=== PATIENT | female | born 1940 | race Caucasian/White ===

== ENCOUNTER 2018-08-02 09:12 | Emergency (ER) | payer OTHER ==
[~2018-08-02] VITALS: Ht 160 cm; Wt 74.1 kg
[~2018-08-02 09:12] MED LIST: AMLO5TAB7 HOMEMEDPO; CEFU500T50 HOMEMEDPO; FLUT1DIS3 HOMEINH; IPRA3AMP18 HOMEINH; LOSA50TA7 HOMEMEDPO; TIOT18CA HOMEINH
[2018-08-02] MEDS ORDERED: KETOROLAC 30 MG/1 ML ONE (12:21)
[2018-08-02] MEDS ORDERED: HYDROcodone/APAP 5/325 TABLET ONE (12:21)
[2018-08-02] MEDS ORDERED: HYDROcodone/APAP 5/325 TABLET PO ONE (12:30)
[2018-08-02] MEDS ORDERED: KETOROLAC 60 MG/2 ML IM ONE (12:30)
[2018-08-02 13:15] VITALS: BP 134/68
== END 2018-08-02 13:18 | disposition home or self-care (01) ==
LOC: ED 13:00
DX: M54.31 Sciatica, right side (principal); M25.551 Pain in right hip; J44.9 Chronic obstructive pulmonary disease, unspecified; Z90.710 Acquired absence of both cervix and uterus
CPT/HCPCS: 73502; 96372; 99283; J1885

== ENCOUNTER 2019-12-06 20:03 | Emergency (ER) | payer MEDICARE, OTHER ==
[~2019-12-06] VITALS: Ht 160 cm; Wt 77.2 kg
[~2019-12-06 20:03] MED LIST changes: +AMLO-150 HOMEMEDPO; -AMLO5TAB7 HOMEMEDPO; +LOSA50TA14 HOMEMEDPO; -LOSA50TA7 HOMEMEDPO
--- NOTE | 2019-12-06 20:40 | NUR ---
assessment made. chart up for MD to see. patient c/o right hand / fingers and right hip pain. right knee abrasions noted too s/p GLF. denies neck / back pain. denies loc. denies hitting. ambulatory
[2019-12-06] MEDS ORDERED: NEOSPORIN OINT. PKT 1 PACKET ONE (21:42)
[2019-12-06 22:41] VITALS: BP 120/75
== END 2019-12-06 22:55 | disposition home or self-care (01) ==
LOC: ED 20:48
DX: M19.041 Primary osteoarthritis, right hand (principal); M16.11 Unilateral primary osteoarthritis, right hip; S60.511A Abrasion of right hand, initial encounter; S70.211A Abrasion, right hip, initial encounter; G89.11 Acute pain due to trauma; J44.9 Chronic obstructive pulmonary disease, unspecified; I10 Essential (primary) hypertension; W01.0XXA Fall on same level from slipping, tripping and stumbling without subsequent striking against object, initial encounter; Y93.01 Activity, walking, marching and hiking; Y92.098 Other place in other non-institutional residence as the place of occurrence of the external cause; Y99.8 Other external cause status
CPT/HCPCS: 99284

== ENCOUNTER → 2020-04-21 | Outpatient (CLI) | payer MEDICARE | END | disposition home or self-care (01) | LOC: RAD 07:26 | PROVIDERS: ATTEND Pain Medicine Interventional Pain Medicine | DX: Z01.810 Encounter for preprocedural cardiovascular examination (principal); Z01.812 Encounter for preprocedural laboratory examination; G90.50 Complex regional pain syndrome I, unspecified; I70.0 Atherosclerosis of aorta; M47.814 Spondylosis without myelopathy or radiculopathy, thoracic region; I21.09 ST elevation (STEMI) myocardial infarction involving other coronary artery of anterior wall | CPT/HCPCS: 71046; 93005 ==

== ENCOUNTER 2021-02-28 23:27 | Inpatient (IN) | payer MEDICARE ==
[~2021-02-28] VITALS: Ht 160 cm; Wt 80.1 kg
[~2021-02-28 23:27] MED LIST changes: +ALEN70TA3 PO; +AMIO100T4 PO; +AMIO200T42 PO; +APIX5TAB PO; +ASPI81TA45 PO; +ATOR40TA78 PO; +BISA-49 PO; +DIGO125T85 PO; +FLUT1BLS3 INH; +LEVO50TA PO; +LOSA100T14 PO; +METO25TA35 PO; +TICA90TA PO
--- NOTE | 2021-03-01 00:30 | NUR ---
HAVEN PAN (BROTHER) [phone]
[2021-03-01] MEDS ORDERED: ALBUTEROL SULFATE 2.5 MG/3 ML NPPB ONE (01:00)
[2021-03-01 01:21] LABS: BASOPHILS % (AUTO) 1 % (0-1); EOSINOPHILS % (AUTO) 1 % (1-7); LYMPHOCYTES % (AUTO) 7 % (22-44); MEAN CORPUSCULAR HEMOGLOBIN 26.9 pg (27.0-34.8); MEAN PLATELET VOLUME 7.9 fL (7.4-10.4); MONOCYTES % (AUTO) 6 % (2-9); NEUTROPHILS % (AUTO) 85 % (42-75); PLATELET COUNT 395 x10^3/uL (130-400); RED BLOOD COUNT 4.08 x10^6/uL (3.82-5.3); RED CELL DISTRIBUTION WIDTH 18.5 % (9.6-15.2)
[2021-03-01 01:25] LABS: ALANINE AMINOTRANSFERASE 88 U/L (12-78); ALBUMIN 3.4 g/dL (3.4-5.0); ANION GAP 6 mmol/L (5-15); CALCIUM 8.4 mg/dL (8.5-10.1); CHLORIDE 109 mmol/L (98-107); CREATININE 1.27 mg/dL (0.55-1.02)
[2021-03-01] MEDS ORDERED: ALBUTEROL SULFATE 2.5 MG/3 ML ONE (01:27)
[2021-03-01 01:29] LABS: ALKALINE PHOSPHATASE 132 U/L (45-117); BILIRUBIN,TOTAL 0.4 mg/dL (0.2-1.0); TOTAL PROTEIN 6.9 g/dL (6.4-8.2)
[2021-03-01 01:32] LABS: TROPONIN I 0.194 ng/mL (0.000-0.045)
--- NOTE | 2021-03-01 01:35 | NUR ---
pt up to bedside commode with moderate resp distress and O2 sat drop to 86%
[2021-03-01] MEDS ORDERED: FUROSEMIDE 40 MG/4 ML IV ONE (02:00)
[2021-03-01] MEDS ORDERED: ASPIRIN 81 MG TABLET CHEW PO ONE (02:00)
[2021-03-01] MEDS ORDERED: CEFTRIAXONE 1,000 MG in DEXTROSE 5% 50 ML IVPB ONE (02:30)
[2021-03-01] MEDS ORDERED: AZITHROMYCIN 500 MG in SODIUM CHLORIDE 0.9% 250 ML IV ONE (02:30)
[2021-03-01] MEDS ORDERED: FUROSEMIDE 40 MG/4 ML ONE (02:40)
[2021-03-01] MEDS ORDERED: ASPIRIN 81 MG TABLET CHEW ONE (02:40)
[2021-03-01] MEDS ORDERED: LORazepam 2 MG/ML, 1ML ONE (04:05)
[2021-03-01] MEDS ORDERED: LORazepam 2 MG/ML, 1ML IVPush ONE ×2 (04:30→14:00)
[2021-03-01 04:51] LABS: TROPONIN I 0.622 ng/mL (0.000-0.045)
[2021-03-01] MEDS ORDERED: morphine SULFATE 10 MG/ML, 1ML IVPush PRN (05:30)
[2021-03-01] MEDS ORDERED: DOCUSATE 100 MG CAPSULE PO PRN (05:30)
[2021-03-01] MEDS ORDERED: HEPARIN 25,000 UNITS/250ML PMX 250 ML IV PRN (05:30)
[2021-03-01] MEDS ORDERED: hydrALAzine 20 MG/ML, 1ML IVPush PRN (05:30)
[2021-03-01] MEDS ORDERED: CYCLOBENZAPRINE 10 MG TABLET PO PRN (05:30)
[2021-03-01] MEDS ORDERED: NITROGLYCERIN 0.4 MG/SPRAY SL PRN (05:30)
[2021-03-01] MEDS ORDERED: NITROGLYCERIN 0.4 MG BOTTLE (25 TABS) SL PRN (05:30)
[2021-03-01] MEDS ORDERED: OXYcodone IR 5MG TABLET PO PRN (05:30)
[2021-03-01] MEDS ORDERED: HEPARIN 5,000 UNITS/ML, 1ML IV ONE (05:30)
[2021-03-01] MEDS ORDERED: ALBUTEROL/IPRATROPIUM 2.5MG/0.5MG, 3 ML NPPB PRN (05:30)
[2021-03-01] MEDS ORDERED: HEPARIN 5,000 UNITS/ML, 1ML IV PRN (05:30)
[2021-03-01 05:45] LABS: ANION GAP 10 mmol/L (5-15); BASOPHILS % (AUTO) 1 % (0-1); CALCIUM 8.3 mg/dL (8.5-10.1); CHLORIDE 109 mmol/L (98-107); CREATININE 1.33 mg/dL (0.55-1.02); EOSINOPHILS % (AUTO) 0 % (1-7); LYMPHOCYTES % (AUTO) 7 % (22-44); MEAN CORPUSCULAR HEMOGLOBIN 27.3 pg (27.0-34.8); MEAN CORPUSCULAR HGB CONC 32.2 g/dL (32.4-35.8); MEAN PLATELET VOLUME 8.3 fL (7.4-10.4); MONOCYTES % (AUTO) 4 % (2-9); NEUTROPHILS % (AUTO) 87 % (42-75); PLATELET COUNT 367 x10^3/uL (130-400); RED BLOOD COUNT 3.75 x10^6/uL (3.82-5.3); RED CELL DISTRIBUTION WIDTH 18.5 % (9.6-15.2)
[2021-03-01] MEDS ORDERED: HEPARIN 25,000 UNITS/250ML PMX 250 ML ONE (06:05)
[2021-03-01] MEDS ORDERED: HEPARIN 5,000 UNITS/ML, 1ML ONE (06:05)
--- NOTE | 2021-03-01 06:45 | NUR ---
report from josselin anthony
--- NOTE | 2021-03-01 07:05 | NUR ---
PT UP TO BEDSIDE COMMODE. VSS/NADN
--- NOTE | 2021-03-01 07:49 | NUR ---
PT SITTING ON GURNEY CALMLY ON HER PHONE, NADN/VSS. CALL LIGHT WITHIN REACH. COMFORT MEASURES PROVIDED.
[2021-03-01] MEDS: DOXYCYCLINE 100 MG in DEXTROSE 5% 250 ML IV SCH ×2 (08:20→20:24)
[2021-03-01] MEDS: TEMPLATE NON-FORMULARY MED. (Fluticasone/Umeclidin/Vilanter (Trelegy Ellipta 100-62.5-25 INH SCH (09:00)
[2021-03-01 10:04] LABS: TROPONIN I 0.806 ng/mL (0.000-0.045)
--- NOTE | 2021-03-01 10:45 | NUR ---
Pt to be admitted to [facility], room 501. Report called to HOLLY.
[2021-03-01] MEDS ORDERED: METOPROLOL TARTRATE 25 MG TAB ONE (11:10)
[2021-03-01] MEDS ORDERED: AMIODARONE 200 MG TABLET ONE (11:10)
[2021-03-01] MEDS: METOPROLOL TARTRATE 25 MG TAB PO SCH ×2 (11:16→17:45)
[2021-03-01] MEDS: AMIODARONE 200 MG TABLET PO SCH (11:16)
[2021-03-01] MEDS: TICAGRELOR 90 MG TABLET PO SCH ×2 (11:49→20:24)
[2021-03-01] MEDS: ACETAMINOPHEN 325 MG TABLET PO PRN ×2 (11:49→22:54)
[2021-03-01] MEDS: LOSARTAN 100 MG TAB PO SCH (11:51)
[2021-03-01 11:54] VITALS: BP 122/86
[2021-03-01 12:09] VITALS: BP 119/84
[2021-03-01 15:53] LABS: TROPONIN I 0.844 ng/mL (0.000-0.045)
[2021-03-01 18:45] VITALS: BP 121/84
[2021-03-01] MEDS: ATORVASTATIN 40 MG TABLET PO SCH (20:24)
[2021-03-01] MEDS ORDERED: TEMAZEPAM 15 MG CAPSULE PO PRN (21:00)
[2021-03-01] MEDS: MELATONIN 5 MG TABLET PO PRN (22:46)
[2021-03-02] VITALS (7 sets, daily range): BP systolic 113–132; BP diastolic 73–88
[2021-03-02] MEDS: CEFTRIAXONE 1,000 MG in DEXTROSE 5% 50 ML IVPB SCH (02:07)
[2021-03-02] MEDS ORDERED: LORazepam 2 MG/ML, 1ML IVPush PRN (03:30)
[2021-03-02 05:37] LABS: BASOPHILS % (AUTO) 1 % (0-1); EOSINOPHILS % (AUTO) 1 % (1-7); LYMPHOCYTES % (AUTO) 11 % (22-44); MEAN CORPUSCULAR HEMOGLOBIN 27.1 pg (27.0-34.8); MEAN CORPUSCULAR HGB CONC 32.6 g/dL (32.4-35.8); MEAN PLATELET VOLUME 8.2 fL (7.4-10.4); MONOCYTES % (AUTO) 9 % (2-9); NEUTROPHILS % (AUTO) 79 % (42-75); PLATELET COUNT 366 x10^3/uL (130-400); RED BLOOD COUNT 3.94 x10^6/uL (3.82-5.3); RED CELL DISTRIBUTION WIDTH 19.3 % (9.6-15.2)
[2021-03-02 05:51] LABS: ANION GAP 8 mmol/L (5-15); CHLORIDE 103 mmol/L (98-107)
[2021-03-02 05:52] LABS: CREATININE 1.14 mg/dL (0.55-1.02)
[2021-03-02] MEDS: METOPROLOL TARTRATE 25 MG TAB PO SCH ×2 (06:43→18:10)
[2021-03-02] MEDS: DOXYCYCLINE 100 MG in DEXTROSE 5% 250 ML IV SCH ×2 (08:04→20:17)
[2021-03-02] MEDS: TICAGRELOR 90 MG TABLET PO SCH ×2 (08:05→20:26)
[2021-03-02] MEDS: AMIODARONE 200 MG TABLET PO SCH ×3 (08:05→20:28)
[2021-03-02] MEDS: LOSARTAN 100 MG TAB PO SCH (08:05)
[2021-03-02 08:20] LABS: TROPONIN I 0.409 ng/mL (0.000-0.045)
[2021-03-02] MEDS: TEMPLATE NON-FORMULARY MED. (Fluticasone/Umeclidin/Vilanter (Trelegy Ellipta 100-62.5-25 INH SCH (09:00)
[2021-03-02] MEDS: ACETAMINOPHEN 325 MG TABLET PO PRN ×2 (12:56→18:16)
[2021-03-02] MEDS ORDERED: HEPARIN 5,000 UNITS/ML, 1ML IV ONE (15:30)
[2021-03-02] MEDS ORDERED: LORazepam 2 MG/ML, 1ML IVPush ONE ×2 (20:00)
[2021-03-02] MEDS: ATORVASTATIN 40 MG TABLET PO SCH (20:26)
[2021-03-02] MEDS ORDERED: GUAIFENESIN ER 600 MG TABLET PO PRN (22:00)
[2021-03-02] MEDS: MELATONIN 5 MG TABLET PO PRN (22:20)
[2021-03-02] MEDS: GUAIFENESIN/DM 200-20MG, 10ML UDC PO PRN (22:20)
[2021-03-03] MEDS: CEFTRIAXONE 1,000 MG in DEXTROSE 5% 50 ML IVPB SCH (02:23)
[2021-03-03 03:04] VITALS: BP 131/84
[2021-03-03 05:05] LABS: CHLORIDE 101 mmol/L (98-107)
[2021-03-03 05:12] LABS: ANION GAP 11 mmol/L (5-15); CALCIUM 8.5 mg/dL (8.5-10.1); CREATININE 1.55 mg/dL (0.55-1.02)
[2021-03-03 06:21] VITALS: BP 131/83
[2021-03-03] MEDS ORDERED: PHARMACY MAY ADJ FOR RENAL FX MC PRN (06:30)
[2021-03-03] MEDS: ACETAMINOPHEN 325 MG TABLET PO PRN ×2 (06:31→14:16)
[2021-03-03] MEDS: METOPROLOL TARTRATE 25 MG TAB PO SCH ×2 (06:31→17:12)
[2021-03-03] MEDS: DOXYCYCLINE 100 MG in DEXTROSE 5% 250 ML IV SCH ×2 (08:04→20:57)
[2021-03-03] MEDS: AMIODARONE 200 MG TABLET PO SCH ×2 (08:06→20:57)
[2021-03-03] MEDS: LOSARTAN 100 MG TAB PO SCH (08:06)
[2021-03-03] MEDS: TICAGRELOR 90 MG TABLET PO SCH ×2 (08:06→20:57)
[2021-03-03] MEDS: TEMPLATE NON-FORMULARY MED. (Fluticasone/Umeclidin/Vilanter (Trelegy Ellipta 100-62.5-25 INH SCH (08:11)
[2021-03-03] MEDS: ONDANSETRON 2MG/ML, 2ML IVPush PRN (08:40)
[2021-03-03] MEDS: BUSPIRONE 5 MG TABLET PO SCH ×3 (09:14→20:58)
[2021-03-03 12:09] VITALS: BP 115/76
[2021-03-03 13:28] VITALS: BP 118/72
[2021-03-03] MEDS ORDERED: PROMETHAZINE 25 MG/ML, 1ML ONE (14:13)
[2021-03-03] MEDS: PROMETHAZINE 25 MG/ML, 1ML IM PRN (14:16)
[2021-03-03] MEDS ORDERED: OMNIPAQUE 350 MG/ML, 75ML BOTTLE ONE (16:45)
[2021-03-03] MEDS: GUAIFENESIN/DM 200-20MG, 10ML UDC PO PRN (17:13)
[2021-03-03 19:52] VITALS: BP 115/65
[2021-03-03] MEDS: MELATONIN 5 MG TABLET PO PRN (20:57)
[2021-03-03] MEDS: ATORVASTATIN 40 MG TABLET PO SCH (20:57)
[2021-03-03] MEDS: APIXABAN 5 MG TABLET PO SCH (20:57)
[2021-03-04 01:53] VITALS: BP 126/76
[2021-03-04] MEDS: GUAIFENESIN/DM 200-20MG, 10ML UDC PO PRN ×2 (01:54→14:30)
[2021-03-04] MEDS: ACETAMINOPHEN 325 MG TABLET PO PRN ×2 (01:54→10:56)
[2021-03-04] MEDS: CEFTRIAXONE 1,000 MG in DEXTROSE 5% 50 ML IVPB SCH (01:54)
[2021-03-04] MEDS: METOPROLOL TARTRATE 25 MG TAB PO SCH ×2 (05:53→18:27)
[2021-03-04 06:02] LABS: ALANINE AMINOTRANSFERASE 41 U/L (12-78); ALBUMIN 3.1 g/dL (3.4-5.0); ANION GAP 10 mmol/L (5-15); CALCIUM 8.3 mg/dL (8.5-10.1); CHLORIDE 101 mmol/L (98-107)
[2021-03-04 06:05] LABS: ALKALINE PHOSPHATASE 87 U/L (45-117); BILIRUBIN,TOTAL 0.5 mg/dL (0.2-1.0); TOTAL PROTEIN 6.1 g/dL (6.4-8.2)
[2021-03-04 06:06] LABS: BASOPHILS % (AUTO) 1 % (0-1); EOSINOPHILS % (AUTO) 2 % (1-7); LYMPHOCYTES % (AUTO) 11 % (22-44); MEAN CORPUSCULAR HEMOGLOBIN 27.1 pg (27.0-34.8); MEAN CORPUSCULAR HGB CONC 33.1 g/dL (32.4-35.8); MEAN PLATELET VOLUME 8.1 fL (7.4-10.4); MONOCYTES % (AUTO) 11 % (2-9); NEUTROPHILS % (AUTO) 75 % (42-75); PLATELET COUNT 289 x10^3/uL (130-400); RED BLOOD COUNT 3.58 x10^6/uL (3.82-5.3); RED CELL DISTRIBUTION WIDTH 19.3 % (9.6-15.2)
[2021-03-04 06:30] VITALS: BP 111/73
[2021-03-04] MEDS: DOXYCYCLINE 100 MG in DEXTROSE 5% 250 ML IV SCH (08:23)
[2021-03-04] MEDS: LOSARTAN 100 MG TAB PO SCH (08:24)
[2021-03-04] MEDS: BUSPIRONE 5 MG TABLET PO SCH ×3 (08:24→21:01)
[2021-03-04] MEDS: APIXABAN 5 MG TABLET PO SCH ×2 (08:24→21:01)
[2021-03-04] MEDS: AMIODARONE 200 MG TABLET PO SCH (08:24)
[2021-03-04] MEDS: TICAGRELOR 90 MG TABLET PO SCH ×2 (08:24→21:00)
[2021-03-04] MEDS: TEMPLATE NON-FORMULARY MED. (Fluticasone/Umeclidin/Vilanter (Trelegy Ellipta 100-62.5-25 INH SCH (08:25)
[2021-03-04] MEDS ORDERED: METH4TAB PO ×2 (12:00)
[2021-03-04] MEDS ORDERED: CEFD300C37 PO ×2 (12:00)
[2021-03-04] MEDS ORDERED: DOXY100C5 PO ×2 (12:00)
[2021-03-04] MEDS ORDERED: AMIO200T42 PO (12:00)
[2021-03-04 12:11] VITALS: BP 110/72
[2021-03-04] MEDS ORDERED: AMIODARONE 150 MG in DEXTROSE 5% 100 ML IV ONE ×2 (17:30→18:00)
[2021-03-04] MEDS ORDERED: AMIODARONE 450 MG in DEXTROSE 5% 241 ML IV SCH (17:30)
[2021-03-04] MEDS ORDERED: FILTER 0.22 MICRON IV ONE (17:30)
[2021-03-04] MEDS ORDERED: FENTANYL PF 100 MCG/2ML ONE (17:55)
[2021-03-04] MEDS ORDERED: MIDAZOLAM 1 MG/ML, 5ML ONE (18:00)
[2021-03-04] MEDS ORDERED: MIDAZOLAM 1 MG/ML, 2ML IVPush ONE (18:30)
[2021-03-04] MEDS ORDERED: FENTANYL PF 100 MCG/2ML IVPush ONE (18:30)
[2021-03-04] MEDS ORDERED: SODIUM CHLORIDE 0.9%, 250ML IVBOLUS ONE (19:30)
[2021-03-04 19:37] LABS: BASOPHILS % (AUTO) 1 % (0-1); EOSINOPHILS % (AUTO) 0 % (1-7); LYMPHOCYTES % (AUTO) 3 % (22-44); MEAN CORPUSCULAR HEMOGLOBIN 26.4 pg (27.0-34.8); MEAN PLATELET VOLUME 8.4 fL (7.4-10.4); MONOCYTES % (AUTO) 6 % (2-9); NEUTROPHILS % (AUTO) 90 % (42-75); PLATELET COUNT 368 x10^3/uL (130-400); RED BLOOD COUNT 3.41 x10^6/uL (3.82-5.3); RED CELL DISTRIBUTION WIDTH 18.6 % (9.6-15.2)
[2021-03-04 19:43] LABS: ALANINE AMINOTRANSFERASE 49 U/L (12-78); ANION GAP 10 mmol/L (5-15); CALCIUM 8.2 mg/dL (8.5-10.1); CHLORIDE 100 mmol/L (98-107); CREATININE 1.54 mg/dL (0.55-1.02)
[2021-03-04 19:47] LABS: ALKALINE PHOSPHATASE 95 U/L (45-117); BILIRUBIN,TOTAL 0.4 mg/dL (0.2-1.0); TOTAL PROTEIN 6.1 g/dL (6.4-8.2); TROPONIN I 0.057 ng/mL (0.000-0.045)
[2021-03-04 20:40] VITALS: BP 118/76
[2021-03-04] MEDS: DOXYCYCLINE 100MG TABLET PO SCH (21:00)
[2021-03-04] MEDS: ATORVASTATIN 40 MG TABLET PO SCH (21:00)
[2021-03-04 21:05] VITALS: BP 123/74
[2021-03-04 22:03] VITALS: BP 156/70
[2021-03-04] MEDS: LORATADINE 10 MG TABLET PO PRN (22:10)
[2021-03-04] MEDS: ONDANSETRON 2MG/ML, 2ML IVPush PRN (22:25)
[2021-03-04] MEDS: PROMETHAZINE 25 MG/ML, 1ML IM PRN (23:21)
[2021-03-05 00:12] VITALS: BP 138/80
[2021-03-05] MEDS: CEFTRIAXONE 1,000 MG in DEXTROSE 5% 50 ML IVPB SCH (01:38)
[2021-03-05 02:39] LABS: TROPONIN I 0.046 ng/mL (0.000-0.045)
[2021-03-05] MEDS: ACETAMINOPHEN 325 MG TABLET PO PRN (02:47)
[2021-03-05] MEDS: LEVOTHYROXINE 50 MCG TABLET PO SCH (05:37)
[2021-03-05] MEDS: PROMETHAZINE 25 MG/ML, 1ML IM PRN ×2 (06:28→12:17)
[2021-03-05 06:49] VITALS: BP 144/76
[2021-03-05] MEDS ORDERED: FILTER 0.22 MICRON IV PRN (07:00)
[2021-03-05 07:24] LABS: BASOPHILS % (AUTO) 1 % (0-1); EOSINOPHILS % (AUTO) 0 % (1-7); LYMPHOCYTES % (AUTO) 9 % (22-44); MEAN CORPUSCULAR HEMOGLOBIN 27.1 pg (27.0-34.8); MEAN CORPUSCULAR HGB CONC 32.6 g/dL (32.4-35.8); MEAN PLATELET VOLUME 8.3 fL (7.4-10.4); MONOCYTES % (AUTO) 8 % (2-9); NEUTROPHILS % (AUTO) 82 % (42-75); PLATELET COUNT 391 x10^3/uL (130-400); RED BLOOD COUNT 3.74 x10^6/uL (3.82-5.3)
[2021-03-05 07:39] LABS: TROPONIN I 0.062 ng/mL (0.000-0.045)
[2021-03-05 07:42] LABS: ALANINE AMINOTRANSFERASE 54 U/L (12-78); ALBUMIN 3.4 g/dL (3.4-5.0); ANION GAP 10 mmol/L (5-15); CALCIUM 8.4 mg/dL (8.5-10.1); CHLORIDE 99 mmol/L (98-107); CREATININE 1.59 mg/dL (0.55-1.02)
[2021-03-05 07:44] LABS: ALKALINE PHOSPHATASE 106 U/L (45-117); BILIRUBIN,TOTAL 0.4 mg/dL (0.2-1.0); TOTAL PROTEIN 6.8 g/dL (6.4-8.2)
[2021-03-05] MEDS ORDERED: AMIODARONE 450 MG in DEXTROSE 5% 241 ML IV SCH (09:00)
[2021-03-05] MEDS: LOSARTAN 100 MG TAB PO SCH (09:28)
[2021-03-05] MEDS: TICAGRELOR 90 MG TABLET PO SCH ×2 (09:28→21:15)
[2021-03-05] MEDS: DOXYCYCLINE 100MG TABLET PO SCH ×2 (09:28→21:14)
[2021-03-05] MEDS: APIXABAN 5 MG TABLET PO SCH ×2 (09:28→21:15)
[2021-03-05] MEDS: BUSPIRONE 5 MG TABLET PO SCH ×3 (09:28→21:15)
[2021-03-05] MEDS: TEMPLATE NON-FORMULARY MED. (Fluticasone/Umeclidin/Vilanter (Trelegy Ellipta 100-62.5-25 INH SCH (09:30)
[2021-03-05 13:07] VITALS: BP 124/74
[2021-03-05 14:13] LABS: TROPONIN I 0.059 ng/mL (0.000-0.045)
[2021-03-05] MEDS: LORazepam 2 MG/ML, 1ML IVPush PRN ×2 (15:25→23:27)
[2021-03-05] MEDS: GUAIFENESIN/DM 200-20MG, 10ML UDC PO PRN (21:14)
[2021-03-05] MEDS: LORATADINE 10 MG TABLET PO PRN (21:14)
[2021-03-05] MEDS: MELATONIN 5 MG TABLET PO PRN (21:14)
[2021-03-05] MEDS: ATORVASTATIN 40 MG TABLET PO SCH (21:14)
[2021-03-05] MEDS: AMIODARONE 200 MG TABLET PO SCH (21:15)
[2021-03-06] MEDS: ACETAMINOPHEN 325 MG TABLET PO PRN (00:15)
[2021-03-06 01:11] VITALS: BP 138/80
[2021-03-06] MEDS: CEFTRIAXONE 1,000 MG in DEXTROSE 5% 50 ML IVPB SCH (01:50)
[2021-03-06] MEDS: LEVOTHYROXINE 50 MCG TABLET PO SCH (05:24)
[2021-03-06 06:39] VITALS: BP 132/88
[2021-03-06 07:55] LABS: BASOPHILS % (AUTO) 1 % (0-1); EOSINOPHILS % (AUTO) 3 % (1-7); LYMPHOCYTES % (AUTO) 13 % (22-44); MEAN CORPUSCULAR HEMOGLOBIN 27.1 pg (27.0-34.8); MEAN CORPUSCULAR HGB CONC 32.9 g/dL (32.4-35.8); MEAN PLATELET VOLUME 7.8 fL (7.4-10.4); MONOCYTES % (AUTO) 13 % (2-9); NEUTROPHILS % (AUTO) 70 % (42-75); PLATELET COUNT 340 x10^3/uL (130-400); RED BLOOD COUNT 3.49 x10^6/uL (3.82-5.3)
[2021-03-06 08:03] LABS: ANION GAP 8 mmol/L (5-15); CHLORIDE 102 mmol/L (98-107); CREATININE 1.32 mg/dL (0.55-1.02)
[2021-03-06] MEDS: TEMPLATE NON-FORMULARY MED. (Fluticasone/Umeclidin/Vilanter (Trelegy Ellipta 100-62.5-25 INH SCH (09:30)
[2021-03-06] MEDS: DOXYCYCLINE 100MG TABLET PO SCH ×2 (10:00→21:06)
[2021-03-06] MEDS: BUSPIRONE 5 MG TABLET PO SCH ×3 (10:01→21:06)
[2021-03-06] MEDS: TICAGRELOR 90 MG TABLET PO SCH ×2 (10:01→21:06)
[2021-03-06] MEDS: LOSARTAN 100 MG TAB PO SCH (10:01)
[2021-03-06] MEDS: APIXABAN 5 MG TABLET PO SCH ×2 (10:02→21:06)
[2021-03-06] MEDS: AMIODARONE 200 MG TABLET PO SCH ×2 (10:02→21:06)
[2021-03-06 14:10] VITALS: BP 107/72
[2021-03-06 19:27] VITALS: BP 118/76
[2021-03-06] MEDS: LORATADINE 10 MG TABLET PO PRN (21:05)
[2021-03-06] MEDS: MELATONIN 5 MG TABLET PO PRN (21:06)
[2021-03-06] MEDS: ATORVASTATIN 40 MG TABLET PO SCH (21:06)
[2021-03-07] MEDS: ACETAMINOPHEN 325 MG TABLET PO PRN (00:04)
[2021-03-07] MEDS: CEFTRIAXONE 1,000 MG in DEXTROSE 5% 50 ML IVPB SCH (01:52)
[2021-03-07 01:59] VITALS: BP 144/86
[2021-03-07] MEDS: LEVOTHYROXINE 50 MCG TABLET PO SCH (06:00)
[2021-03-07 06:01] LABS: BASOPHILS % (AUTO) 1 % (0-1); EOSINOPHILS % (AUTO) 2 % (1-7); LYMPHOCYTES % (AUTO) 15 % (22-44); MEAN CORPUSCULAR HGB CONC 32.7 g/dL (32.4-35.8); MEAN PLATELET VOLUME 7.7 fL (7.4-10.4); MONOCYTES % (AUTO) 11 % (2-9); NEUTROPHILS % (AUTO) 70 % (42-75); PLATELET COUNT 360 x10^3/uL (130-400); RED BLOOD COUNT 3.63 x10^6/uL (3.82-5.3); RED CELL DISTRIBUTION WIDTH 19.1 % (9.6-15.2)
[2021-03-07 06:11] LABS: ALANINE AMINOTRANSFERASE 35 U/L (12-78); ALBUMIN 3.1 g/dL (3.4-5.0); ANION GAP 6 mmol/L (5-15); CALCIUM 9.2 mg/dL (8.5-10.1); CHLORIDE 107 mmol/L (98-107); CREATININE 1.17 mg/dL (0.55-1.02)
[2021-03-07 06:13] LABS: ALKALINE PHOSPHATASE 86 U/L (45-117); BILIRUBIN,TOTAL 0.5 mg/dL (0.2-1.0); TOTAL PROTEIN 5.9 g/dL (6.4-8.2)
[2021-03-07 06:45] VITALS: BP 134/85
[2021-03-07] MEDS ORDERED: FUROSEMIDE 20 MG TABLET ONE (08:41)
[2021-03-07] MEDS: TEMPLATE NON-FORMULARY MED. (Fluticasone/Umeclidin/Vilanter (Trelegy Ellipta 100-62.5-25 INH SCH (08:46)
[2021-03-07] MEDS: TICAGRELOR 90 MG TABLET PO SCH ×2 (08:46→20:02)
[2021-03-07] MEDS: LOSARTAN 100 MG TAB PO SCH (08:47)
[2021-03-07] MEDS: AMIODARONE 200 MG TABLET PO SCH ×2 (08:47→20:03)
[2021-03-07] MEDS: DOXYCYCLINE 100MG TABLET PO SCH ×2 (08:47→20:09)
[2021-03-07] MEDS: FUROSEMIDE 20 MG TABLET PO SCH (08:47)
[2021-03-07] MEDS: APIXABAN 5 MG TABLET PO SCH ×2 (08:47→20:03)
[2021-03-07] MEDS: BUSPIRONE 5 MG TABLET PO SCH ×3 (08:48→20:02)
[2021-03-07 12:40] VITALS: BP 108/74
[2021-03-07 18:51] VITALS: BP 131/83
[2021-03-07] MEDS: ATORVASTATIN 40 MG TABLET PO SCH (20:03)
[2021-03-07] MEDS: LORATADINE 10 MG TABLET PO PRN (20:09)
[2021-03-08 01:07] VITALS: BP 144/79
[2021-03-08] MEDS: CEFTRIAXONE 1,000 MG in DEXTROSE 5% 50 ML IVPB SCH (02:52)
[2021-03-08] MEDS: ACETAMINOPHEN 325 MG TABLET PO PRN ×2 (02:56→14:20)
[2021-03-08] MEDS: LEVOTHYROXINE 50 MCG TABLET PO SCH (06:00)
[2021-03-08 06:35] VITALS: BP 124/81
[2021-03-08] MEDS: DOXYCYCLINE 100MG TABLET PO SCH (08:18)
[2021-03-08] MEDS: LOSARTAN 100 MG TAB PO SCH (08:18)
[2021-03-08] MEDS: BUSPIRONE 5 MG TABLET PO SCH ×2 (08:18→16:50)
[2021-03-08] MEDS: TICAGRELOR 90 MG TABLET PO SCH (08:18)
[2021-03-08] MEDS: APIXABAN 5 MG TABLET PO SCH (08:18)
[2021-03-08] MEDS: FUROSEMIDE 20 MG TABLET PO SCH (08:18)
[2021-03-08] MEDS: AMIODARONE 200 MG TABLET PO SCH (08:18)
[2021-03-08] MEDS: TEMPLATE NON-FORMULARY MED. (Fluticasone/Umeclidin/Vilanter (Trelegy Ellipta 100-62.5-25 INH SCH (08:19)
[2021-03-08] MEDS ORDERED: METOPROLOL SUCCINATE 25 MG TAB.ER.24H PO SCH (08:30)
[2021-03-08] MEDS ORDERED: AMIODARONE 200 MG TABLET PO SCH (09:00)
[2021-03-08 12:10] VITALS: BP 113/74
[2021-03-08 15:31] LABS: TROPONIN I 0.022 ng/mL (0.000-0.045)
[2021-03-12] MEDS ORDERED: SENN-211 PO (11:00)
[2021-03-12] MEDS ORDERED: FURO40TA6 PO (11:08)
[2021-03-26] MEDS ORDERED: [UNRECOGNIZED DRUG - CODE] PO (10:32)
[2021-03-26] MEDS ORDERED: LOSA100T14 PO (10:32)
[2021-03-26] MEDS ORDERED: CARV6.2512 PO (10:32)
[2021-03-26] MEDS ORDERED: FERR-36 PO (10:32)
[2021-03-26] MEDS ORDERED: FURO40TA6 PO (10:32)
[2021-03-26] MEDS ORDERED: SPIR25TA PO (11:33)
[2021-06-06] MEDS ORDERED: CETI10TA18 PO (13:54)
[2021-06-06] MEDS ORDERED: ALBU8.5H8 INH (13:54)
[2021-06-06] MEDS ORDERED: ASCO-96 PO (13:54)
[2021-06-06] MEDS ORDERED: BISA5TAB5 PO (13:54)
== END 2021-03-08 22:33 | DRG 280 ==
LOC: ED 03-01 02:29 → EDIP 03-01 02:32 → 5SO 03-01 11:32
PROVIDERS: ADMIT Internal Medicine; ATTEND Hospitalist
PROC: 5A2204Z Restoration of Cardiac Rhythm, Single (ICD-10-PCS; principal; 2021-03-04)
DX: I48.92 Unspecified atrial flutter (principal); J96.21 Acute and chronic respiratory failure with hypoxia; I21.A1 Myocardial infarction type 2; I50.33 Acute on chronic diastolic (congestive) heart failure; J15.9 Unspecified bacterial pneumonia; D68.69 Other thrombophilia; J44.0 Chronic obstructive pulmonary disease with (acute) lower respiratory infection; N17.9 Acute kidney failure, unspecified; I42.9 Cardiomyopathy, unspecified; I47.2 Ventricular tachycardia; I48.91 Unspecified atrial fibrillation; D64.9 Anemia, unspecified; E03.9 Hypothyroidism, unspecified; E78.5 Hyperlipidemia, unspecified; E87.8 Other disorders of electrolyte and fluid balance, not elsewhere classified; F40.240 Claustrophobia; G89.29 Other chronic pain; I11.0 Hypertensive heart disease with heart failure; I25.10 Atherosclerotic heart disease of native coronary artery without angina pectoris; I28.9 Disease of pulmonary vessels, unspecified; I49.5 Sick sinus syndrome; Z82.3 Family history of stroke; I25.2 Old myocardial infarction; Z87.891 Personal history of nicotine dependence; Z90.710 Acquired absence of both cervix and uterus; Z95.0 Presence of cardiac pacemaker; Z95.5 Presence of coronary angioplasty implant and graft; Z88.8 Allergy status to other drugs, medicaments and biological substances; Z88.1 Allergy status to other antibiotic agents; Z91.013 Allergy to seafood
CPT/HCPCS: 36415; 36600; 71045; 71275; 80048; 80053; 82803; 83735; 83880; 84145; 84443; 84484; 85025; 85520; 85651; 93005; 94640; 96374; 96375; C8929; G0378; J0456; J0696; J1644; J1940; J2250; J2405; J2550; J3010; J7060; J7509; J7613; Q9957; Q9967; J0282; J2060; J7050

== ENCOUNTER 2021-06-06 13:01 | Observation (INO) | payer MEDICARE ==
[~2021-06-06] VITALS: Ht 160 cm; Wt 72.7 kg
[2021-06-07 06:34] VITALS: BP 103/68
== END 2021-06-07 14:06 | disposition home or self-care (01) ==
LOC: CACL 13:01 → ORIP 15:27 → 5SO 16:53
PROVIDERS: ADMIT Internal Medicine Clinical Cardiac Electrophysiology; ATTEND Internal Medicine Clinical Cardiac Electrophysiology
DX: I48.20 Chronic atrial fibrillation, unspecified (principal); I25.9 Chronic ischemic heart disease, unspecified; I47.2 Ventricular tachycardia; I25.10 Atherosclerotic heart disease of native coronary artery without angina pectoris; I10 Essential (primary) hypertension; J44.9 Chronic obstructive pulmonary disease, unspecified; E78.5 Hyperlipidemia, unspecified; E03.9 Hypothyroidism, unspecified; Z79.899 Other long term (current) drug therapy; Z79.01 Long term (current) use of anticoagulants; Z91.040 Latex allergy status; Z95.810 Presence of automatic (implantable) cardiac defibrillator; Z99.81 Dependence on supplemental oxygen
CPT/HCPCS: 36415; 80053; 85025; 85610; 93650; 99156; C1894; C2630; G0378; J2250; J3010; J3490